=== PATIENT | female | born 1960 | race African-American/Black ===

== ENCOUNTER 2025-02-05 12:45 | Emergency (ER) | payer OTHER ==
[~2025-02-05] VITALS: Ht 165.1 cm; Wt 56.0 kg
[2025-02-05 12:48] VITALS: O2SAT 99
[2025-02-05] MEDS: OXYCODONE HCL/ACETAMINOPHEN 5/325MG TABLET PO ONE (13:42)
[2025-02-05] MEDS: ACETAMINOPHEN 500MG TABLET PO ONE (14:16)
[2025-02-05 14:18] LABS: HEMATOCRIT. 35.8 % (36.0-48.0); HEMOGLOBIN. 11.8 g/dL (12.0-16.0); MEAN CORPUSCULAR HEMOGLOBIN 29.9 pg (28.0-32.0); MEAN CORPUSCULAR HGB CONC 33.1 g/dL (31.0-37.0); MEAN CORPUSCULAR VOLUME 90.3 fL (81.0-99.0); MEAN PLATELET VOLUME 7.8 fl (7.4-10.4); PLATELET 324 x1000/uL (130-400); RED BLOOD CELL COUNT 3.96 mill/uL (4.2-5.4); RED CELL DISTRIBUTION WIDTH 14.4 % (11.6-14.6); WHITE BLOOD COUNT 12.2 x1000/uL (4.5-11.0)
[2025-02-05 14:28] LABS: CHLORIDE 97 mEq/L (98-107); POTASSIUM 3.8 mEq/L (3.5-5.1); SODIUM 133 mEq/L (136-145)
[2025-02-05 14:30] LABS: CALCIUM 9.7 mg/dL (8.7-10.4); CARBON DIOXIDE 28 mEq/L (21-32)
[2025-02-05 14:34] LABS: CREATININE 0.7 mg/dL (0.6-1.0)
[2025-02-05 14:35] LABS: GLUCOSE 108 mg/dL (70-105); TROPONIN I HIGH SENSITIVITY 6 ng/L (3.0-34); UREA NITROGEN BLOOD 8 mg/dL (9-23)
[2025-02-05 14:53] LABS: DIFFERENTIAL COMMENT 1
[2025-02-05 16:00] LABS: BG BASE EXCESS 0.4 mmol/L (-2.0-3.0); BG CARBOXYHEMOGLOBIN 0.3 % (0.5-1.5); BG DEOXYHEMOGLOBIN 4.2 % (0.0-5.0); BG FRACTION INSPIRED OXYGEN 21; BG HCO3 ACT 23.7 mmol/L (21.0-28.0); BG METHEMOGLOBIN 0.3 % (0.5-1.5); BG OXYGEN SATURATION 95.8 % (94.0-98.0); BG OXYHEMOGLOBIN 95.2 % (94.0-98.0); BG PCO2 33.8 mmHg (32.0-45.0); BG PH 7.463 (7.350-7.450); BG PO2 77.4 mmHg (83.0-108.0); BG SAMPLE SITE RIGHT RADIAL; BG TOTAL HEMOGLOBIN 12.3 g/dL (12.0-16.0); BG VENT MODE ROOM AIR
[2025-02-05] MEDS: SODIUM CHLORIDE 0.9% 1,000 ML IV NR (16:00)
[2025-02-05 16:14] LABS: GIANT PLATELETS FEW; PLATELET ESTIMATE NORMAL
[2025-02-05 18:45] VITALS: BP 161/86; PULSE 91; RESP 24; TEMP 36.7; O2SAT 100
== END 2025-02-05 19:00 | disposition short-term general hospital (02) ==
LOC: ER 12:45
DX: G89.29 Other chronic pain (principal); M54.50 Low back pain, unspecified; R06.02 Shortness of breath; I10 Essential (primary) hypertension; J44.89 Other specified chronic obstructive pulmonary disease; Z79.899 Other long term (current) drug therapy; Z88.8 Allergy status to other drugs, medicaments and biological substances; Z88.6 Allergy status to analgesic agent
CPT/HCPCS: 80048; 83880; 85025; 84484; 36415; 71045; 82805; 82375; 96360; 99285; 36600; J7030; Z7610 ×4; A4606

== ENCOUNTER 2025-05-21 12:27 | Emergency (ER) | payer OTHER ==
[~2025-05-21] VITALS: Ht 157.5 cm; Wt 60.0 kg
[2025-05-21 12:31] VITALS: O2SAT 99
[2025-05-21] MEDS: ONDANSETRON 4MG ODT PO NR (13:15)
[2025-05-21 13:56] LABS: BASOPHILS % 1.1 % (0.0-2.0); EOSINOPHILS % 1.6 % (0.0-5.0); HEMATOCRIT. 36.8 % (36.0-48.0); HEMOGLOBIN. 12.3 g/dL (12.0-16.0); LYMPHOCYTES % 28.8 % (20.0-50.0); MEAN PLATELET VOLUME 7.8 fl (7.4-10.4); MONOCYTES % 11.0 % (2.0-8.0); NEUTROPHILS % 57.5 % (40.0-76.0); PLATELET 572 x1000/uL (130-400); RED BLOOD CELL COUNT 4.55 mill/uL (4.2-5.4); RED CELL DISTRIBUTION WIDTH 16.2 % (11.6-14.6)
[2025-05-21 14:11] LABS: INR 1.1
[2025-05-21 14:12] LABS: UREA NITROGEN BLOOD 34 mg/dL (9-23)
[2025-05-21 14:13] LABS: ASPARTATE AMINOTRANSFERASE 54 IU/L (<34); BILIRUBIN DIRECT 0.1 mg/dL (<=3.0)
[2025-05-21 14:14] LABS: BILIRUBIN TOTAL 0.3 mg/dL (0.1-1.0); PROTEIN TOTAL 8.3 g/dL (6.0-8.3)
[2025-05-21 14:48] LABS: CREATININE 1.6 mg/dL (0.6-1.0)
[2025-05-21 14:49] LABS: TROPONIN I HIGH SENSITIVITY 47 ng/L (3.0-34)
[2025-05-21] MEDS: SODIUM CHLORIDE 0.9% 1,000 ML IV ONE (14:49)
[2025-05-21 19:42] VITALS: BP 121/73; PULSE 95; RESP 20; TEMP 36.8; O2SAT 100
[2025-05-21 20:30] LABS: TROPONIN I HIGH SENSITIVITY 48 ng/L (3.0-34)
== END 2025-05-21 20:11 | disposition short-term general hospital (02) ==
LOC: ER 12:27 → CANBEDREQ 17:56 → ER 20:11
DX: E83.52 Hypercalcemia (principal); E87.8 Other disorders of electrolyte and fluid balance, not elsewhere classified; I10 Essential (primary) hypertension; I69.393 Ataxia following cerebral infarction; J44.89 Other specified chronic obstructive pulmonary disease; Z88.6 Allergy status to analgesic agent; Z88.8 Allergy status to other drugs, medicaments and biological substances
CPT/HCPCS: 99291; 74176; 96360; 80076; 80048; 83690; 83735; 85025; 85610; 85730; 84484; 36415; 71045; 93005; Q0162; J7030